=== PATIENT | male | born 1955 | race Caucasian/White ===

== ENCOUNTER → 2017-04-21 | Outpatient (CLI) | payer OTHER | LOC: FIMAGING 13:27 | PROVIDERS: ATTEND Internal Medicine Rheumatology | DX: L40.50 Arthropathic psoriasis, unspecified (principal) ==

== ENCOUNTER 2017-09-12 12:21 | Observation (INO) | payer OTHER ==
[2017-09-12] MEDS ORDERED: NS 1,000 ML IV ONE (12:38)
--- NOTE | 2017-09-12 12:38 | EDPHY ---
H & P Time Seen by Provider: 09/12/17 12:28 HPI/ROS: Chief complaint. Leg injury HPI. 61-year-old male [place] by EMS [place] he hit some rocks. He ejected from his left ski and then began to spin and twist on his right leg. He felt a pop and snap. Injury is between the knee and the ankle on the right leg. He can't stand and road the tube [place] down. Did not strike his head or lose consciousness. No neck pain or back pain. Denies any other injuries. No previous injury to that leg. Last meal was 830 this morning when he had a granola bar. Patient received fentanyl and ketamine per EMS ROS Constitutional. no fever/chills, no weakness Eyes. no problems with vision ENT. no sore throat, no nasal drainage Cardiovascular. no chest pain Respiratory. no shortness of breath, no cough Abdominal. no abdominal pain, no nausea/vomiting, no diarrhea . no problems urinating MS. Right leg injury Skin. no rash Lymph. no swollen glands Neuro. no headache, no dizziness, unable to walk secondary to injury Past Medical/Surgical History: Psoriatic arthritis on methotrexate and embryl Social History: , nonsmoker, no alcohol Smoking Status: Never smoked Physical Exam: General Appearance: Alert well-developed male moderate distress vital signs are stable Eyes: Pupils equal and round no pallor or injection. ENT, Mouth: Mucous membranes are moist. Respiratory: There are no retractions, lungs are clear to auscultation. Cardiovascular: Regular rate and rhythm. Gastrointestinal: Abdomen is soft and nontender, no masses, bowel sounds normal. Neurological: Awake and alert, sensory and motor exams grossly normal. Skin: Warm and dry, no rashes. Musculoskeletal: Neck is supple nontender. Extremities swelling with mild deformity and crepitus to the mid tibia fibula area right lower extremity. No break in the skin. Distal motor vascular sensitivity intact Psychiatric: Patient is oriented X 3, there is no agitation. Constitutional: Initial Vital Signs Temperature (C) 36.9 C 09/12/17 12:23 Heart Rate 90 09/12/17 12:23 Respiratory Rate 16 09/12/17 12:23 Blood Pressure 179/90 H 09/12/17 12:23 O2 Sat (%) 92 09/12/17 12:23 O2 Delivery Mode Room Air Allergies/Adverse Reactions: No Known Allergies Allergy (Unverified 09/12/17 12:30) Home Medications: Medication Instructions Recorded Etanercept [Enbrel] 50 mg SQ WE 09/12/17 Folic Acid [Folic Acid 1 MG (*)] 1 mg PO DAILY 09/12/17 Meloxicam 15 mg PO DAILY PRN 09/12/17 Methotrexate Sodium [Rheumatrex 10 mg PO WE 09/12/17 2.5 mg (RX)] Medical Decision Making - Diagnostics EKG Interpretation: EKG interpreted by me shows normal sinus rhythm normal interval. There is left axis deviation. QRS is normal there is no significant ST elevation or depression. There is lateral flattening of T-waves. Rate is 73 Imaging Results: Imaging Impressions Tibia/Fibula X-Ray 09/12/17 12:31 Impression: 1. Displaced right tibial and fibular fractures, as above. Chest X-Ray 09/12/17 13:03 Impression: No posttraumatic intrathoracic abnormality identified. X-ray right lower extremity shows comminuted tibia and fibular fracture. Chest x-ray interpreted by me is no Procedures: IV normal saline. Dilaudid for pain. Preop labs, EKG, chest x-ray Patient is placed in a long leg splint. Post splint application shows good anatomic position and distal motor vascular sensitivity to be intact ED Course/Re-evaluation: Patient and I discussed imaging results and recommendation for surgery. He expresses understanding and agreement. Patient is kept NPO and hydrated with normal saline. I consulted and discussed the case with Dr. Galvez, orthopedics, who will take the patient to the OR Differential Diagnosis: I considered fracture, dislocation, open fracture, contusion - Data Points Medications Given: Hydromorphone HCl (Dilaudid) 2 mg IVP Q4 PRN PRN Reason: Pain, Severe Unable to Take PO Stop: 09/22/17 17:44 Last Admin: 09/12/17 17:55 Dose: 2 mg Lactated Ringer's (Lr) 1,000 mls @ 100 mls/hr IV CONT SUSANA Stop: 03/11/18 16:59 Last Admin: 09/12/17 17:54 Dose: 1,000 mls Discontinued Medications Hydromorphone HCl (Dilaudid) 1 mg IVP EDNOW ONE Stop: 09/12/17 13:22 Last Admin: 09/12/17 13:31 Dose: 1 mg Sodium Chloride (Ns) 1,000 mls @ 0 mls/hr IV EDNOW ONE; Wide Open PRN Reason: Protocol Stop: 09/12/17 12:39 Last Admin: 09/12/17 12:47 Dose: 1,000 mls Departure - Departure Disposition: [facility] Inpatient Acute Clinical Impression: Tibia/fibula fracture, shaft Qualifiers: Encounter type: initial encounter Fracture type: closed Laterality: right Qualified Code(s): S82.201A - Unspecified fracture of shaft of right tibia, initial encounter for closed fracture; S82.401A - Unspecified fracture of shaft of right fibula, initial encounter for closed fracture; S82.401A - Unspecified fracture of shaft of right fibula, initial encounter for closed fracture Condition: Fair
[2017-09-12] MEDS ORDERED: HYDROmorphONE/DILAUDID 2 MG/ML INJ IVP ONE (13:21)
--- NOTE | 2017-09-12 13:40 | CPEKG ---
Heart Rate: 73 RR Interval: 822 P-R Interval: 160 QRSD Interval: 96 QT Interval: 400 QTC Interval: 441 P [place]: 55 QRS [place]: 11 T [place]: -22 EKG Severity - ABNORMAL ECG - EKG Impression: SINUS RHYTHM EKG Impression: PROBABLE LEFT ATRIAL ABNORMALITY EKG Impression: INFERIOR INFARCT, AGE INDETERMINATE Electronically Signed By: Santiago Palmer 12-Sep-2017 17:27:18
[2017-09-12 14:11] LABS: PLATELET COUNT 183 10^3/uL (150-400)
[2017-09-12 14:23] LABS: INR 0.98 (0.83-1.16); PROTIME(PATIENT) 13.2 SEC (12.0-15.0)
[2017-09-12] MEDS ORDERED: ceFAZolin 2 GM/SWFI 2 GM/20 ML SYR IVP ONE (16:35)
[2017-09-12] MEDS ORDERED: LR 1,000 ML IV SCH (17:00)
[2017-09-12] MEDS ORDERED: HYDROmorphONE/DILAUDID 2 MG/ML INJ IVP PRN ×3 (17:45→22:14)
[2017-09-12] MEDS ORDERED: ONDANSETRON 4 MG/2 ML VIAL IVP PRN ×2 (17:45→22:14)
[2017-09-12] MEDS ORDERED: ceFAZolin 2 GM/SWFI 20 ML SYR IVP ONE (19:56)
[2017-09-12] MEDS ORDERED: ROPIVACAINE HCL 20 MG/10 ML INJ EP ONE ×2 (20:02→21:56)
[2017-09-12] MEDS ORDERED: MIDAZOLAM 2 MG/2 ML VIAL IVP ONE (20:37)
--- NOTE | 2017-09-12 20:40 | PDANEPAE ---
ANE History of Present Illness ORIF of tibia ANE Past Medical History - Cardiovascular History Hx Hypertension: No Hx Arrhythmias: No Hx Chest Pain: No Hx Coronary Artery / Peripheral Vascular Disease: No Hx CHF / Valvular Disease: No Hx Palpitations: No - Pulmonary History Hx COPD: No Hx Oxygen in Use at Home: No Hx Sleep Apnea: No Sleep Apnea Screening Result - Last Documented: Negative - Endocrine History Hx Diabetes: No Hypothyroid: No Hyperthyroid: No Obesity: mild - Renal History Hx Renal Disorders: No - Neurological & Psychiatric Hx Hx Neurological and Psychiatric Disorders: No - Other Health History Other Health History: psoriatic arthritis - Surgical History Prior Surgeries: s/p colonoscopy ANE Review of Systems Review of Systems: - Exercise capacity METS (RN): 4 METS ANE Patient History - Allergies Allergies/Adverse Reactions: No Known Allergies Allergy (Unverified 09/12/17 12:30) - Home Medications Home Medications: Etanercept [Enbrel] 50 mg SQ WE 09/12/17 [Last Taken 09/07/17] Folic Acid [Folic Acid 1 MG (*)] 1 mg PO DAILY 09/12/17 [Last Taken 09/11/17] Meloxicam 15 mg PO DAILY PRN 09/12/17 [Last Taken 09/09/17] Methotrexate Sodium [Rheumatrex 2.5 mg (RX)] 10 mg PO WE 09/12/17 [Last Taken ] - NPO status NPO Since - Liquids (Date): 09/12/17 NPO Since - Liquids (Time): 09:00 NPO Since - Solids (Date): 09/12/17 NPO Since - Solids (Time): 08:30 - Smoking Hx Smoking Status: Never smoked - Alcohol Use Alcohol Use: Other (2-3 beers/day) - Family Anes Hx Family Anes Hx: none ANE Labs/Vital Signs - Labs Result Diagrams: 09/12/17 14:00 09/12/17 14:00 - Vital Signs Blood Pressure: 152/96 Heart Rate: 70 Respiratory Rate: 16 O2 Sat (%): 95 Height: 172.72 cm Weight: 79.379 kg ANE Physical Exam - Airway Neck exam: FROM Mallampati Score: Class 2 Mouth exam: normal dental/mouth exam - Pulmonary Pulmonary: clear to auscultation - Cardiovascular Cardiovascular: regular rate and rhythym - ASA Status ASA Status: III ANE Anesthesia Plan Anesthesia Plan: general endotracheal anesthesia (other options discussed. Questions answered.)
[2017-09-12] MEDS ORDERED: MIDAZOLAM 2 MG/2 ML VIAL ONE (20:41)
[2017-09-12] MEDS ORDERED: fentaNYL 250 MCG/5 ML INJ ONE (20:44)
[2017-09-12] MEDS ORDERED: PROPOFOL 200 MG/20 ML VIAL ONE (20:44)
[2017-09-12] MEDS ORDERED: RANITIDINE 50 MG/2 ML VIAL ONE (20:45)
[2017-09-12] MEDS ORDERED: ROCURONIUM 50 MG/5 ML VIAL ONE (20:45)
[2017-09-12] MEDS ORDERED: DEXAMETHASONE 4 MG/ML VIAL ONE (20:45)
[2017-09-12] MEDS ORDERED: ONDANSETRON 4 MG/2 ML VIAL ONE (21:49)
[2017-09-12] MEDS ORDERED: SUGAMMADEX SODIUM 200 MG/2 ML VIAL IVP ONE (21:57)
[2017-09-12] MEDS ORDERED: NALOXONE HCL 0.4 MG/ML INJ IVP PRN (21:58)
[2017-09-12] MEDS ORDERED: fentaNYL 100 MCG/2 ML INJ IVP PRN (21:58)
[2017-09-12] MEDS ORDERED: HYDROCODONE/APAP 5/325 TAB PO PRN (22:14)
[2017-09-12] MEDS ORDERED: ACETAMINOPHEN 325 MG TAB PO PRN (22:14)
[2017-09-12] MEDS ORDERED: OXYCODONE/APAP 5/325 TAB PO PRN (22:14)
[2017-09-12] MEDS ORDERED: D5W 1/2 NS W/ 20 KCl/L 1,000 ML IV SCH (22:15)
[2017-09-12] MEDS ORDERED: KETOROLAC 15 MG/1 ML SDV IVP ONE (22:16)
[2017-09-12] MEDS ORDERED: KETOROLAC 15 MG/1 ML SDV ONE (22:18)
[2017-09-12 23:08] VITALS: RESP 16
--- NOTE | 2017-09-12 23:13 | GCON ---
[f rep st] CONSULTATION ORTHOPEDIC ER CONSULT DATE OF CONSULTATION: 09/12/2017 CHIEF COMPLAINT: Right leg pain. DIAGNOSIS: Midshaft tib-fib fracture, short oblique. HISTORY OF PRESENT ILLNESS: The patient is a 61-year-old male. History of rheumatologic disease. Liat Gudino. 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 Was skiing today at [place]. Hit some rocks and started to spin and twist on his right leg. [place] a pop and snap[place] by ambulance to the emergency room. Isolated injury. ER evaluation. Please see details of ER H and P. PERTINENT ORTHOPEDIC EXAMINATION: A well placed splint. Soft calf. Mobile toes. No pain with pass lamar range of motion of the right toes. Left lower extremity had knee and ankle range of motion witho ut any pain. Abdomen was soft. Pelvis stable. Bilateral upper extremities fully mobile, without an y pain. Neck nontender. IMAGING: X-rays revealed a short oblique midshaft tib-fib fracture. The skin was healthy. PLAN: Risks, benefits, expectations, and alternatives were discussed. Patient elects for operative intervention and stable fixation of the right tib-fib fracture. Thirty minutes at the bedside. /[id number]/MODL
--- NOTE | 2017-09-13 08:05 | GOP ---
[f rep st] OPERATIVE REPORT DATE OF OPERATION: 09/12/2017 SURGEON: Clint Galvez MD PREOPERATIVE DIAGNOSIS: Closed right tibia-fibula fracture. POSTOPERATIVE DIAGNOSIS: Closed right tibia-fibula fracture. PROCEDURE PERFORMED: 1. Intramedullary nail fixation of the right tibia. 2. Intraoperative fluoroscopy; interpreted by surgeon. FINDINGS: ESTIMATED BLOOD LOSS: Minimal. INDICATIONS: Please see details of ER H and P. 61-year-old male with a closed tib-fib fracture from a skiing accident. Elects for operative interve ntion, stable fixation with an IM nail. DESCRIPTION OF PROCEDURE: Patient identified in the preoperative holding area. Consent, laterality, and preoperative antibiotics were confirmed delivered. All questions were answered. Patient brought into the OR. General anesthesia on the [facility]. Transitioned over to the [facility]. A right hip bump was used. All extremities were well padded. The right lower extremity had no tourniquet placed. The right lower extremity was prepped and draped in usual sterile fashion. Surgi [place] time-out was performed. Skin looked healthy. Compartments were soft. We made a medial parapate llar approach. Sharp dissection through the paratenon. Sharp dissection just medial to the patellar tendon. We used a guide pin, reaming technique. Fluoroscopic views in AP, lateral view with bent k nee over a triangle. We had a nice approximation, used the reamer. Placed a ball-tipped guidewire s uccessfully across the fracture down to the ankle plafond, distal tibial plafond. We measured for a 345 mm nail. We reamed from an 8.5 to a 10, and placed a 9 nail. Across the fracture in the isthmus , we had a nice tight fit. Thus, we thought it was stable for 1 screw above and below the fracture s ite. With the jig, we placed 1 screw above, and then freehand technique did an A to P manager state bel ow. We copiously washed out the wounds with 500 cc of warm normal saline. 20 cc of 0.2% ropivacaine was used around the general vicinity of the patellar incision, both interlocking incisions. 2-0 PDS for patellar arthrotomy closure. 3-0 Monocryl for paratenon closure and 3-0 Monocryl for subcutaneo us closure, with charles for the skin. Sterile dressing was applied with Xeroform, 4 x 4's, ABD, Web ril, and a sterile Dennis. A walking boot is going to be applied. IMPLANTS USED: A 9 mm diameter nail x 345 mm in length with 1 single interlocking screw above and be low the fracture site. Synthes. COMPLICATIONS: None. TOTAL SURGICAL TIME: 1 hour. DISPOSITION: Extubated, awake to the PACU in stable condition. No tourniquet time. /[id number]/MODL
[2017-09-13] MEDS ORDERED: ENOXAPARIN 40 MG/0.4 ML SYR SC SCH (09:00)
--- NOTE | 2017-09-13 09:22 | POSTANESTH ---
Post Anesthetic Evaluation Cardiovascular Status: Normal, Stable Respiratory Status: Normal, Stable Level of Consciousness/Mental Status: Can Participate in Eval Pain Control: Adequate, Prn Tx Ordered Nausea/Vomiting Control: Adequate, Prn Tx Ordered Complications Possibly Related to Anesthesia: None Noted
--- NOTE | 2017-09-13 12:14 | SOAPPROG ---
HOLLY Progress Note Assessment/Plan: Assessment: doing well w/o issues 61 yo male pod #1 s/p right tibia fracture IMN by dr. ibrahim on 09/12/17 -PT/OT eval and clearance -tdwb RLE -pain management: tylenol 1000mg q8h prn pain, oxycodone 5-10mg q4-6h prn pain dispo #40 no refills f/u w/ orthopedics7-10 days after surgery in clinic for follow up -call with any issues -discharge when cleared by PT/OT -tn home 09/13/17 Subjective: jemima kraus pleasant 61-year-old m post right tibia fracture status post tibia intramedullary naily Dr. ibrahim on 09/12/17. jemima denies any issues overnight, reports his pain is well controlled on the oral pain meds, denies cp/sob, denies n/v/d, denies fevers/chills, reports he is voiding and passing gas, but has not had a bowel movement yet. reports he thinks he is ready to go home if cleared Objective: RLE: dressings c/d/i, grossly nvid w/ brisk cap refill, no knee rom assessed, full ankle/digital rom, pt/dp 2+ Vital Signs Temp Pulse Resp BP Pulse Ox 36.4 C 71 16 143/79 H 96 09/13/17 07:53 09/13/17 07:53 09/13/17 07:53 09/13/17 07:53 09/13/17 07:53 Laboratory Results 09/12/17 14:00 09/12/17 14:00 09/12/17 09/13/17 09/14/17 05:59 05:59 05:59 Intake Total 1907 Output Total 1450 325 Balance 457 -325 PT 13.2 SEC (12.0-15.0) 09/12/17 14:00 INR 0.98 (0.83-1.16) 09/12/17 14:00 ICD10 Worksheet Patient Problems: Problems Problem Status Onset Tibia/fibula fracture, shaft Acute
[2017-09-13 13:03] VITALS: BP 155/80; PULSE 82; TEMP 97.5; O2SAT 93
== END 2017-09-13 14:24 | disposition home or self-care (01) ==
LOC: EDUNIT# → INTOOBSV 13:24 → F3N 15:12
PROVIDERS: ADMIT Orthopaedic Surgery; ATTEND Orthopaedic Surgery
PROC: 2W3LX1Z Immobilization of Right Lower Extremity using Splint (ICD-10-PCS; 2017-09-12)
PROC: BW1C1ZZ Fluoroscopy of Lower Extremity using Low Osmolar Contrast (ICD-10-PCS; 2017-09-12)
PROC: 0QSG06Z Reposition Right Tibia with Intramedullary Internal Fixation Device, Open Approach (ICD-10-PCS; principal; 2017-09-12 19:00)
DX: S82.231A Displaced oblique fracture of shaft of right tibia, initial encounter for closed fracture (principal); S82.451A Displaced comminuted fracture of shaft of right fibula, initial encounter for closed fracture; Y93.23 Activity, snow (alpine) (downhill) skiing, snowboarding, sledding, tobogganing and snow tubing; V00.321A Fall from snow-skis, initial encounter; Y92.828 Other wilderness area as the place of occurrence of the external cause; Y99.8 Other external cause status
CPT/HCPCS: 27759; 29505; 71045; 73590; 76001; 93005; 97116; 97161; 97165; C1769; G0378; 96374; C1713; J0690; J1100; J1170; J1650; J1885; J2250; J2405; J2704; J2780; J2795; J3010